=== PATIENT | male | born 1960 | race Caucasian/White ===

== ENCOUNTER 2018-03-06 12:34 | Inpatient (IN) | payer OTHER ==
[~2018-03-06] VITALS: Ht 186.7 cm; Wt 116.6 kg
[2018-03-06] MEDS ORDERED: SODIUM CHLORIDE FLUSH 10ML SYR IVF ONE (13:30)
[2018-03-06 13:36] LABS: MEAN CORPUSCULAR HGB CONC 33.9 g/dL (33.2-36.2); MEAN CORPUSCULAR VOLUME 85.5 fL (81-97); MEAN PLATELET VOLUME 5.9 fL (7.4-10.4); PLATELET COUNT 677 x10^3/uL (130-400); RED CELL DISTRIBUTION WIDTH 14.4 % (9.4-14.8)
[2018-03-06 13:45] LABS: ALANINE AMINOTRANSFERASE 43 U/L (12-78); ALBUMIN 3.6 g/dL (3.4-5.0); ANION GAP 10 mmol/L (5-15); CALCIUM 10.3 mg/dL (8.5-10.1); CHLORIDE 94 mmol/L (98-107)
[2018-03-06 13:47] LABS: ALKALINE PHOSPHATASE 116 U/L (45-117); BILIRUBIN,TOTAL 0.4 mg/dL (0.2-1.0); TOTAL PROTEIN 9.2 g/dL (6.4-8.2)
[2018-03-06] MEDS ORDERED: SODIUM BICARB 8.4%, 50ML SYRINGE IVPush ONE (14:30)
[2018-03-06] MEDS ORDERED: ALBUTEROL 0.5%, 20ML NPPB ONE (14:30)
[2018-03-06] MEDS ORDERED: SODIUM CHLORIDE 0.9% 1,000ML IVBOLUS ONE (14:30)
[2018-03-06] MEDS ORDERED: DEXTROSE 50%, 50ML SYRINGE IVPush ONE (14:30)
[2018-03-06] MEDS ORDERED: CALCIUM GLUCONATE 4.6 MEQ in SODIUM CHLORIDE 0.9% 50 ML IV ONE (14:30)
[2018-03-06] MEDS ORDERED: INSULIN REGULAR 100 UNITS/ML, 3ML VIAL IVPush ONE (14:30)
[2018-03-06] MEDS ORDERED: FUROSEMIDE 40 MG/4 ML IVPush ONE (14:30)
[2018-03-06 14:39] LABS: BASOPHILS # (AUTO) 0.02 x10^3/uL (0-0.1); BASOPHILS % (AUTO) 0 % (0-1); EOSINOPHILS # (AUTO) 0.17 x10^3/uL (0-0.4); EOSINOPHILS % (AUTO) 1 % (1-7); LYMPHOCYTES # (AUTO) 1.02 x10^3/uL (1-3.4); LYMPHOCYTES % (AUTO) 7 % (22-44); MD MORPH REVIEW ONLY; MONOCYTES # (AUTO) 1.96 x10^3/uL (0.2-0.8); MONOCYTES % (AUTO) 13 % (2-9); NEUTROPHILS # (AUTO) 12.21 x10^3/uL (1.8-6.8); NEUTROPHILS % (AUTO) 79 % (42-75)
[2018-03-06 14:42] LABS: <RBC MORPHOLOGY> NORMAL
[2018-03-06 14:43] LABS: <PLATELET ESTIMATE> INCREASED; <PLT MORPHOLOGY> NORMAL PLT MORPH; <WBC MORPHOLOGY> NORMAL
[2018-03-06] MEDS ORDERED: FUROSEMIDE 40 MG/4 ML ONE (14:52)
[2018-03-06] MEDS ORDERED: ONDANSETRON 2MG/ML, 2ML ONE (14:52)
[2018-03-06] MEDS ORDERED: SODIUM BICARB 8.4%, 50ML SYRINGE ONE (14:52)
[2018-03-06] MEDS ORDERED: DEXTROSE 50%, 50ML SYRINGE ONE (14:52)
[2018-03-06] MEDS ORDERED: ONDANSETRON 2MG/ML, 2ML IVPush ONE (15:00)
[2018-03-06] MEDS ORDERED: INSULIN REGULAR 100 UNITS/ML, 3ML VIAL ONE (15:13)
[2018-03-06] MEDS ORDERED: SODIUM CHLORIDE 0.9% 1,000 ML IV SCH (15:21)
[2018-03-06] MEDS ORDERED: ACETAMINOPHEN 325 MG TABLET PO PRN (15:30)
[2018-03-06] MEDS ORDERED: ONDANSETRON 2MG/ML, 2ML IVPush PRN (15:30)
[2018-03-06] MEDS ORDERED: PRAV40TA2 PO (15:43)
[2018-03-06] MEDS ORDERED: VALS1TAB26 PO (15:43)
[2018-03-06] MEDS ORDERED: MULT-478 PO (15:43)
[2018-03-06] MEDS ORDERED: LEVO137T2 PO (15:43)
[2018-03-06] MEDS ORDERED: METF500T17 PO (15:43)
[2018-03-06] MEDS ORDERED: TAMS0.4C2 PO (15:43)
[2018-03-06] MEDS ORDERED: MESA800T3 PO (15:43)
[2018-03-06] MEDS ORDERED: INSU100C SQ-INSULIN (15:43)
[2018-03-06] MEDS ORDERED: GLUC15006 PO (15:43)
[2018-03-06] MEDS ORDERED: INSU100I13 SQ (15:43)
[2018-03-06] MEDS ORDERED: FENO134C PO (15:43)
[2018-03-06] MEDS ORDERED: aspirin PO (15:43)
[2018-03-06] MEDS ORDERED: DIPH1TAB6 PO (15:50)
[2018-03-06] MEDS ORDERED: LOPE2TAB26 PO (16:53)
[2018-03-06 17:48] VITALS: BP 149/80
[2018-03-06] MEDS ORDERED: MULTIVITAMIN MC SCH (18:00)
[2018-03-06] MEDS ORDERED: MESALAMINE MC SCH (18:00)
[2018-03-06] MEDS ORDERED: HEPARIN 5,000 UNITS/ML, 1ML SQ SCH (18:00)
[2018-03-06] MEDS: THIAMINE 200 MG, MVI ADULT 10 ML, FOLIC ACID 1 MG in D5%-0.9% NACL 1,000 ML IV SCH (18:26)
[2018-03-06] MEDS: SODIUM BICARBONATE 8.4% 75 MEQ in SODIUM CHLORIDE 0.45% 1,000 ML IV SCH (18:51)
[2018-03-06] MEDS: TAMSULOSIN 0.4 MG CAP.ER.24H PO SCH (19:54)
[2018-03-06] MEDS: PRAVASTATIN 40 MG TABLET PO SCH (19:54)
[2018-03-06] MEDS: MESALAMINE 400 MG CAPSULE.DR PO SCH (19:55)
[2018-03-06 19:59] VITALS: BP 116/70
[2018-03-06 21:28] LABS: CLOSTRIDIUM DIFFICILE ANTIGEN NEGATIVE; CLOSTRIDIUM DIFFICILE TOXIN NEGATIVE (Negative)
[2018-03-06 21:48] LABS: ANION GAP 10 mmol/L (5-15); CALCIUM 9.4 mg/dL (8.5-10.1); CHLORIDE 93 mmol/L (98-107); CREATININE 3.14 mg/dL (0.7-1.3)
[2018-03-06 23:09] LABS: CULTURE INDICATED? YES; MICROSCOPIC INDICATED
[2018-03-06 23:48] LABS: CREATININE,URINE RANDOM 85.3 mg/dL
[2018-03-07 01:27] VITALS: BP 94/58
[2018-03-07] MEDS: SODIUM BICARBONATE 8.4% 75 MEQ in SODIUM CHLORIDE 0.45% 1,000 ML IV SCH ×3 (03:47→19:55)
[2018-03-07] MEDS: LEVOTHYROXINE 137 MCG TABLET PO SCH (05:14)
[2018-03-07 05:24] LABS: BASOPHILS # (AUTO) 0.06 x10^3/uL (0-0.1); BASOPHILS % (AUTO) 1 % (0-1); EOSINOPHILS % (AUTO) 1 % (1-7); LYMPHOCYTES # (AUTO) 0.96 x10^3/uL (1-3.4); LYMPHOCYTES % (AUTO) 10 % (22-44); MD NO; MEAN CORPUSCULAR HEMOGLOBIN 29.2 pg (27.5-34.5); MEAN CORPUSCULAR HGB CONC 34.3 g/dL (33.2-36.2); MEAN CORPUSCULAR VOLUME 85.2 fL (81-97); MEAN PLATELET VOLUME 5.8 fL (7.4-10.4); MONOCYTES # (AUTO) 1.29 x10^3/uL (0.2-0.8); MONOCYTES % (AUTO) 14 % (2-9); NEUTROPHILS # (AUTO) 7.15 x10^3/uL (1.8-6.8); NEUTROPHILS % (AUTO) 75 % (42-75); PLATELET COUNT 614 x10^3/uL (130-400); RED BLOOD COUNT 4.19 x10^6/uL (4.38-5.82); RED CELL DISTRIBUTION WIDTH 14.4 % (9.4-14.8)
[2018-03-07 05:33] LABS: ALBUMIN 3.2 g/dL (3.4-5.0); ANION GAP 11 mmol/L (5-15); CALCIUM 9.5 mg/dL (8.5-10.1); CHLORIDE 92 mmol/L (98-107)
[2018-03-07 05:36] LABS: ALANINE AMINOTRANSFERASE 38 U/L (12-78); ALKALINE PHOSPHATASE 93 U/L (45-117); BILIRUBIN,TOTAL 0.4 mg/dL (0.2-1.0); CREATININE 2.56 mg/dL (0.7-1.3); TOTAL PROTEIN 7.9 g/dL (6.4-8.2)
[2018-03-07] MEDS: INSULIN LISPRO 100 UNITS/ML, PEN SQ-INSULIN SCH ×4 (07:00→20:38)
[2018-03-07 07:45] VITALS: BP 101/67
[2018-03-07] MEDS: MESALAMINE 400 MG CAPSULE.DR PO SCH ×3 (08:26→20:37)
[2018-03-07] MEDS: MULTIVITAMIN 1 TABLET PO SCH (08:26)
[2018-03-07] MEDS: PANTOPRAZOLE 40 MG IV IVPush SCH (08:26)
[2018-03-07 13:25] VITALS: BP 113/67
[2018-03-07] MEDS: THIAMINE 200 MG, MVI ADULT 10 ML, FOLIC ACID 1 MG in D5%-0.9% NACL 1,000 ML IV SCH (18:00)
[2018-03-07] MEDS: TAMSULOSIN 0.4 MG CAP.ER.24H PO SCH (20:37)
[2018-03-07] MEDS: PRAVASTATIN 40 MG TABLET PO SCH (20:37)
[2018-03-07 20:55] VITALS: BP 94/53
[2018-03-08 01:30] VITALS: BP 114/64
[2018-03-08] MEDS: SODIUM BICARBONATE 8.4% 75 MEQ in SODIUM CHLORIDE 0.45% 1,000 ML IV SCH (01:46)
[2018-03-08 05:44] LABS: BASOPHILS # (AUTO) 0.05 x10^3/uL (0-0.1); BASOPHILS % (AUTO) 1 % (0-1); EOSINOPHILS # (AUTO) 0.08 x10^3/uL (0-0.4); EOSINOPHILS % (AUTO) 2 % (1-7); LYMPHOCYTES # (AUTO) 0.97 x10^3/uL (1-3.4); LYMPHOCYTES % (AUTO) 18 % (22-44); MD NO; MEAN CORPUSCULAR HEMOGLOBIN 29.3 pg (27.5-34.5); MEAN CORPUSCULAR HGB CONC 35.2 g/dL (33.2-36.2); MEAN CORPUSCULAR VOLUME 83.2 fL (81-97); MEAN PLATELET VOLUME 5.7 fL (7.4-10.4); MONOCYTES # (AUTO) 0.97 x10^3/uL (0.2-0.8); MONOCYTES % (AUTO) 18 % (2-9); NEUTROPHILS # (AUTO) 3.33 x10^3/uL (1.8-6.8); NEUTROPHILS % (AUTO) 62 % (42-75); PLATELET COUNT 548 x10^3/uL (130-400); RED BLOOD COUNT 3.58 x10^6/uL (4.38-5.82); RED CELL DISTRIBUTION WIDTH 14.3 % (9.4-14.8)
[2018-03-08 05:50] LABS: ALANINE AMINOTRANSFERASE 29 U/L (12-78); ALBUMIN 2.8 g/dL (3.4-5.0); ANION GAP 9 mmol/L (5-15); CALCIUM 8.4 mg/dL (8.5-10.1); CHLORIDE 98 mmol/L (98-107)
[2018-03-08 05:53] LABS: ALKALINE PHOSPHATASE 69 U/L (45-117); BILIRUBIN,TOTAL 0.3 mg/dL (0.2-1.0); CREATININE 1.37 mg/dL (0.7-1.3)
[2018-03-08] MEDS: LEVOTHYROXINE 137 MCG TABLET PO SCH (05:56)
[2018-03-08] MEDS: INSULIN LISPRO 100 UNITS/ML, PEN SQ-INSULIN SCH ×4 (07:00→21:00)
[2018-03-08] MEDS ORDERED: FENTANYL PF 100 MCG/2ML ONE (07:59)
[2018-03-08] MEDS ORDERED: MIDAZOLAM 1 MG/ML, 5ML ONE (08:00)
[2018-03-08] MEDS: PANTOPRAZOLE 40 MG IV IVPush SCH (08:22)
[2018-03-08] MEDS: MULTIVITAMIN 1 TABLET PO SCH (10:54)
[2018-03-08] MEDS: MESALAMINE 400 MG CAPSULE.DR PO SCH ×3 (10:54→20:36)
[2018-03-08] MEDS ORDERED: SODIUM CHLORIDE 0.9% 1,000 ML IV SCH (11:30)
[2018-03-08] MEDS: FOLIC ACID 1 MG TABLET PO SCH (11:43)
[2018-03-08] MEDS: THIAMINE 100MG TABLET PO SCH (11:43)
[2018-03-08 14:00] VITALS: BP 98/58
[2018-03-08] MEDS: TAMSULOSIN 0.4 MG CAP.ER.24H PO SCH (18:28)
[2018-03-08 20:00] VITALS: BP 137/70
[2018-03-08] MEDS: PRAVASTATIN 40 MG TABLET PO SCH (20:36)
[2018-03-08] MEDS ORDERED: TAMSULOSIN 0.4 MG CAP.ER.24H PO ONE (22:30)
[2018-03-09 01:54] VITALS: BP 117/60
[2018-03-09 05:52] LABS: BASOPHILS # (AUTO) 0.04 x10^3/uL (0-0.1); BASOPHILS % (AUTO) 1 % (0-1); EOSINOPHILS # (AUTO) 0.11 x10^3/uL (0-0.4); EOSINOPHILS % (AUTO) 2 % (1-7); LYMPHOCYTES # (AUTO) 1.52 x10^3/uL (1-3.4); LYMPHOCYTES % (AUTO) 21 % (22-44); MD NO; MEAN CORPUSCULAR HEMOGLOBIN 28.3 pg (27.5-34.5); MEAN CORPUSCULAR HGB CONC 33.2 g/dL (33.2-36.2); MEAN PLATELET VOLUME 5.7 fL (7.4-10.4); MONOCYTES # (AUTO) 1.37 x10^3/uL (0.2-0.8); MONOCYTES % (AUTO) 19 % (2-9); NEUTROPHILS # (AUTO) 4.21 x10^3/uL (1.8-6.8); NEUTROPHILS % (AUTO) 58 % (42-75); PLATELET COUNT 544 x10^3/uL (130-400); RED BLOOD COUNT 3.77 x10^6/uL (4.38-5.82); RED CELL DISTRIBUTION WIDTH 14.3 % (9.4-14.8)
[2018-03-09] MEDS: LEVOTHYROXINE 137 MCG TABLET PO SCH (05:57)
[2018-03-09 06:24] LABS: CHLORIDE 99 mmol/L (98-107)
[2018-03-09 06:34] LABS: ANION GAP 10 mmol/L (5-15); CALCIUM 8.6 mg/dL (8.5-10.1); CREATININE 1.29 mg/dL (0.7-1.3)
[2018-03-09] MEDS ORDERED: PANTOPROZOLE 40MG TABLET PO SCH (07:30)
[2018-03-09 08:20] VITALS: BP 119/60
[2018-03-09] MEDS: INSULIN LISPRO 100 UNITS/ML, PEN SQ-INSULIN SCH ×3 (08:45→18:22)
[2018-03-09] MEDS: THIAMINE 100MG TABLET PO SCH (08:46)
[2018-03-09] MEDS: MULTIVITAMIN 1 TABLET PO SCH (08:46)
[2018-03-09] MEDS: MESALAMINE 400 MG CAPSULE.DR PO SCH ×2 (08:46→17:26)
[2018-03-09] MEDS: FOLIC ACID 1 MG TABLET PO SCH (08:47)
[2018-03-09 12:32] VITALS: BP 127/72
[2018-03-09] MEDS ORDERED: FINASTERIDE 5 MG TABLET PO SCH (15:30)
[2018-03-09] MEDS ORDERED: VALS40TA10 PO (16:38)
[2018-03-09] MEDS ORDERED: PRED20TA PO (16:38)
[2018-03-09] MEDS ORDERED: FINA5TAB4 PO (16:38)
[2018-03-09] MEDS ORDERED: OMEP-110 PO (16:42)
== END 2018-03-09 22:04 | disposition home or self-care (01) | DRG 385 ==
LOC: ED 15:23 → EDIP 15:32 → 4EST 17:45
PROVIDERS: ADMIT Hospitalist; ATTEND Hospitalist
PROC: 0T9B70Z Drainage of Bladder with Drainage Device, Via Natural or Artificial Opening (ICD-10-PCS; 2018-03-06)
PROC: 0DBE8ZX Excision of Large Intestine, Via Natural or Artificial Opening Endoscopic, Diagnostic (ICD-10-PCS; principal; 2018-03-08 09:00)
DX: K51.90 Ulcerative colitis, unspecified, without complications (principal); E43 Unspecified severe protein-calorie malnutrition; N17.9 Acute kidney failure, unspecified; E87.1 Hypo-osmolality and hyponatremia; E87.2 Acidosis; E87.5 Hyperkalemia; Z79.4 Long term (current) use of insulin; N18.9 Chronic kidney disease, unspecified; E11.22 Type 2 diabetes mellitus with diabetic chronic kidney disease; K40.90 Unilateral inguinal hernia, without obstruction or gangrene, not specified as recurrent; I12.9 Hypertensive chronic kidney disease with stage 1 through stage 4 chronic kidney disease, or unspecified chronic kidney disease; N40.1 Benign prostatic hyperplasia with lower urinary tract symptoms; R33.8 Other retention of urine; R91.1 Solitary pulmonary nodule; E86.0 Dehydration; I95.9 Hypotension, unspecified; E83.52 Hypercalcemia; Z68.33 Body mass index [BMI] 33.0-33.9, adult
CPT/HCPCS: 36415; 51702; 87046; 87427; 99291; J7042; 74176; 76770; 80048; 80053; 81001; 82570; 82962; 83690; 83735; 83930; 83935; 84100; 84132; 84300; 84443; 85025; 87086; 87324; 88305; 89055; 93005; 96365; 96375; 99152; 99153; G0378; J0610; J1940; J2250; J2405; J3010; J3411; C9113; J1815; J7030; J7512